=== PATIENT | male | born 1980 | race Caucasian/White ===

== ENCOUNTER 2025-05-05 08:57 | Emergency (ER) | payer OTHER, SELFPAY ==
[2025-05-05 09:04] VITALS: BP 159/91; PULSE 48; RESP 16; TEMP 36.2; O2SAT 100; BMI 26.5
--- NOTE | 2025-05-05 09:20 | CRLHL7_ITS ---
For Patients: As a result of the Century Cures Act, medical imaging exams and procedure reports are released immediately into your electronic medical record. You may view this report before your referring provider. If you have questions, please contact your health care provider. INDICATION: Periumbilical and right lower quadrant pain. COMPARISON: None. TECHNIQUE: CT of the abdomen and pelvis with intravenous contrast. Multiplanar axial, coronal, and sagittal reformats were reconstructed. Contrast: 91 mL Isovue 370. FINDINGS: Lung bases: Normal. Liver: There is a 4 millimeter hypodense liver lesion in segment II on series 2, image 31 and series 4, image 12. There is a somewhat more ill-defined hypodense liver lesion near the falciform ligament in the subcapsular aspect of segment III measures 1.5 cm. Ill-defined 1 centimeter hypodense liver lesion in segment IV on series 2, image 44. Gallbladder and bile ducts: Normal gallbladder. No bile duct dilation. Pancreas: Normal. Spleen: Normal. Adrenal glands: Normal. Kidneys: Normal parenchyma. Tiny right upper pole renal cyst. No solid renal mass. No calculi. No urinary tract dilation. Urinary bladder: Normal. Pelvis: No cyst or mass. Vessels: Normal. Bowel: No dilated or inflamed bowel. Normal appendix. Moderate stool burden. Lymph nodes: No adenopathy. Peritoneum: No ascites. Abdominal wall: No hernia. Bones: No fractures. No focal worrisome bone lesions. IMPRESSION: 1. Indeterminate liver lesions measuring up to 1.5 [address] abdomen without and with IV contrast liver mass protocol. 2. Otherwise unremarkable CT of the abdomen and pelvis. Please note that all CT scans at this facility use dose modulation, iterative reconstruction, and/or weight-based dosing when appropriate to reduce radiation dose to as low as reasonably achievable. Dictated by Jana Shane MD @ 05/05/2025 9:57:17 AM (Electronically Signed)
--- NOTE | 2025-05-05 09:21 | ED_ITS ---
HPI - Nausea/Vomiting/Diarrhea General Date Seen: 05/05/25 Chief complaint: Nausea/Vomiting Stated complaint: abdominal pain, chill and vomiting Time Seen by Provider: 05/05/25 09:14 Source: patient Mode of arrival: ambulatory Limitations: no limitations History of Present Illness HPI Narrative: Patient is a 44-year-old male presenting to the emergency department for nausea, vomiting, abdominal pain. He states around 01:30 woke up noticed he was having quite a bit of nausea and periumbilical abdominal pain. He has never had symptoms like this before. He tried taking some [id number] nausea medicine without any improvement. Has tried to eat a bowl of oatmeal at about 04:30 and has had about 64 oz of water/Gatorade/green tea since he woke up attempting to get himself to feel better. He has vomited 5 times since he woke up he states. States it appears yellowish green. Has not noticed any blood in his vomit. He continues to be nauseated this time. States all the pain seems to be around his periumbilical region. Denies ever having pain like this before. No previous abdominal surgeries. Had an episode diarrhea when he woke up at about 01:30 but no bowel movement since then. Has been having chills but no objective fevers. Denies chest pain, shortness of breath, lightheadedness, dizziness, weakness, numbness, headache, vision changes, dysuria. No other concerns noted. Of note the person was on azithromycin 2 weeks ago for strep throat. Is not having any sore throat at this time. Related Data Home Medications ?Medication ?Instructions ?Recorded ?Confirmed No Known Home Medications 05/05/2504/22 Allergies Allergy/AdvReac Type Severity Reaction Status Date / Time No Known Drug Allergies Allergy Verified 05/05/25 10:43 Review of Systems Status of ROS: Reports: 10 or more systems reviewed and unremarkable except as noted in History and below [facility] Medical History No known health problems ?Z78.9 - Other specified health status (ICD-10) Social History Narrative: , three kids Smoking Status: Former smoker How often do you have a drink containing alcohol: monthly or less AUDIT-C Alcohol total score: 1 Non-prescribed substance use: marijuana (any form) Non-prescribed substance use details: some days thc use Exam Narrative: Exam Narrative: Const: Well-nourished, Well-developed, in moderate distress Eyes: PERRL, no conjunctival injection, and symmetrical lids HENT: Atraumatic external nose and ears. Moist mucous membranes. Neck: Symmetric, trachea midline, No thyromegaly. CVS: RRR, No murmurs or gallops. Peripheral pulses 2+ and equal in all extremities RESP: Unlabored respiratory effort. Clear to auscultation bilaterally. GI: Periumbilical and right lower quadrant tenderness. No tenderness noted to rest of abdomen. Mild guarding but no rebound. Negative Rovsing sign. Nondistended MSK:Extremities w/o deformity, Normal Active ROM Skin: Warm, Dry. No rashes or lesions. Neuro: Normal Muscle tone, No focal neurological deficits. Psych: Awake, Alert, & Oriented x3. Appropriate mood and affect. Const: Vital Signs, click to edit/add: Vital Signs - 24 hr 05/05/25 09:04 05/05/25 09:52 05/05/25 10:00 Temperature 97.2 F L Pulse Rate 40 L 75 Pulse Rate [Pulse Oximeter] 48 L Respiratory Rate 16 18 Blood Pressure Blood Pressure [Ri ght Upper Arm] 159/91 H Pulse Oximetry 100 100 94 Oxygen Delivery Me thod Room Air 05/05/25 10:15 05/05/25 10:31 Temperature Pulse Rate 50 L Pulse Rate [Pulse Oximeter] Respiratory Rate 16 Blood Pressure 110/70 Blood Pressure [Ri ght Upper Arm] Pulse Oximetry 94 Oxygen Delivery Me thod Course Vital Signs Vital signs: Initial Vital Signs Temperature 97.2 F L 05/05/25 09:04 Temperature Source Temporal Artery Scan 05/05/25 09:04 Pulse Rate 48 L 05/05/25 09:04 Pulse Rhythm Regular 05/05/25 09:04 Respiratory Rate 16 05/05/25 09:04 Blood Pressure 159/91 H 05/05/25 09:04 Blood Pressure Mean 113 H 05/05/25 09:04 Blood Pressure Position Sitting 05/05/25 09:04 Pulse Oximetry 100 05/05/25 09:04 Oxygen Delivery Method Room Air 05/05/25 09:04 Vital Signs Temperature 97.2 F L 05/05/25 09:04 Pulse Rate 48 L 05/05/25 09:04 Respiratory Rate 16 05/05/25 09:04 Blood Pressure 159/91 H 05/05/25 09:04 Pulse Oximetry 100 05/05/25 09:04 Oxygen Delivery Method Room Air 05/05/25 09:04 Temperature 97.2 F L 05/05/25 09:04 Pulse Rate 50 L 05/05/25 10:15 Respiratory Rate 16 05/05/25 10:31 Blood Pressure 110/70 05/05/25 10:31 Pulse Oximetry 94 05/05/25 10:15 Oxygen Delivery Method Room Air 05/05/25 09:04 Medications Administered Medications: Discontinued Medications Generic Name Dose Route Start Last Admin Trade Name Freq PRN Reason Stop Dose Admin Lactated Ringer's 1,000 mls @ 1,000 mls/hr 05/05/25 09:20 05/05/25 10:33 Lactated Ringers 1000 Ml IV 05/05/25 10:19 Infused .Q1H ONE Infusion Morphine Sulfate 4 mg 05/05/25 09:20 05/05/25 09:48 Morphine 4 Mg/Ml Inj IVP 05/05/25 09:21 4 mg ONCE ONE Administration Ondansetron HCl 4 mg 05/05/25 09:20 05/05/25 09:48 Ondansetron 2 Mg/Ml Inj IVP 05/05/25 09:21 4 mg ONCE ONE Administration MDM - Nausea/Vomiting/Diarrhea MDM Narrative Medical decision making narrative: Patient is a 44-year-old male presenting for periumbilical and right lower quadrant pain. My main concern at this time is appendicitis. Will do a CT scan with IV contrast for better evaluation. Will also do a lie patient's like for signs of pancreatitis. Lower on the differential would include diverticulitis, gastroenteritis, gallbladder and liver disease. Will give him some Zofran for pain and morphine for nausea. Will also give him a L of fluids for hydration. CBC, CMP all ordered. Patient's lab work returns with a white count of 14. Rest his lab work shows no acute concerning abnormalities. CT scan returned showing indeterminate liver lesions measuring up to 1.5 cm. It is recommended he get an MRI abdomen without and with IV contrast for liver mass protocol. He is not having any right upper quadrant symptoms and his liver enzymes are within normal limits. This can be done outpatient. He is feeling much better after the medications. Symptoms are likely from a gastroenteritis. No signs of emergent abdominal issues. He will be discharged. He is agreeable to this plan. Lab Data Labs: Lab Results 05/05/25 Range/Units 09:30 WBC 14.06 H (4.50-11.00) K/uL RBC 5.25 (4.30-5.90) m/uL Hgb 14.7 (13.5-17.5) gm/dL Hct 44.1 (37.0-53.0) % MCV 84 (80-100) fL MCH 28 (26-34) pg MCHC 33 (32-36) gm/dL RDW Coeff of Fab 13.7 (11.5-15.5) % Plt Count 310 (140-440) K/uL Neut % (Auto) 83.2 H (42.0-72.0) % Lymph % (Auto) 12.3 L (20-44) % [place] % (Auto) 3.6 (0.0-11.0) % Eos % (Auto) 0.7 (0.0-7.0) % Baso % (Auto) 0.1 (0.0-3.0) % Neut # (Auto) 11.70 H (1.7-7.0) K/uL Lymph # (Auto) 1.70 (0.90-2.90) K/uL [place] # (Auto) 0.50 (0.00-0.90) K/UL Eos # (Auto) 0.10 (0.00-0.50) K/uL Baso # (Auto) 0.00 (0.00-0.30) K/uL Abs Immat Gran (auto) 0.00 (0.00-0.30) K/uL Imm/Tot Granulo (auto) 0.1 % Sodium 139 (135-149) mmol/L Potassium 4.3 (3.6-5.1) mmol/L Chloride 106 (96-114) mmol/L Carbon Dioxide 26 (20-32) mmol/L Anion Gap 7 (7-15) mEq/L BUN 16 (5-24) mg/dL Creatinine 1.1 (0.5-1.5) mg/dL Estimated Creat Clear 89.41 Estimated GFR 85 ml/min Glucose 138 H (60-115) mg/dL Calcium 9.3 (8.4-10.6) mg/dL Total Bilirubin 0.5 (0.1-1.5) mg/dL AST 31 (12-35) U/L ALT 19 (4-50) U/L Alkaline Phosphatase 85 (40-150) U/L Total Protein 6.9 (6.0-8.3) g/dL Albumin 4.3 (3.3-5.0) g/dL Lipase 100 (23-300) U/L Imaging Data CT scan abdomen pelvis: Attestation: I have reviewed the pertinent imaging results. Radiologist's impression: 1. Indeterminate liver lesions measuring up to 1.[address] abdomen without and with IV contrast liver mass protocol. 2. Otherwise unremarkable CT of the abdomen and pelvis. Please note that all CT scans at this facility use dose modulation, iterative reconstruction, and/or weight-based dosing when appropriate to reduce radiation dose to as low as reasonably achievable. Dictated by Jana Shane MD @ 05/05/2025 9:57:17 AM Discharge Plan Discharge Clinical Impression: Abdominal pain Qualifiers: Abdominal location: periumbilical Qualified Code(s): R10.33 - Periumbilical pain Patient Disposition: Home, Self-Care Condition: Improved Instructions: Abdominal Pain (ED) Additional Instructions: Your abdominal pain and nausea were likely be gastroenteritis related to either a viral infection or food poisoning. Symptoms should resolve on their own. Take the provided Zofran as needed for nausea. Zofran prescribed via instymeds Your CT scans there were some lesions seen on your liver. It is recommended you follow-up with your primary care provider to get an MRI abdomen without and with IV contrast liver mass protocol. Prescriptions: No Action No Known Home Medications Follow Up/Referrals: Neo Eastman MD [Primary Care Provider, Family Practice] Stand Alone Forms: [employer] Info Instructions
[2025-05-05 09:39] LABS: Hematocrit 44.1 % (37.0-53.0); Hemoglobin* 14.7 gm/dL (13.5-17.5); Immature Granulocytes Pct Auto 0.1 %; Mean Corpuscular HGB Conc 33 gm/dL (32-36); Mean Corpuscular Hemoglobin 28 pg (26-34); Mean Corpuscular Volume 84 fL (80-100); RDW Coefficient of Variation % 13.7 % (11.5-15.5); Red Blood Count 5.25 m/uL (4.30-5.90); White Blood Count* 14.06 K/uL (4.50-11.00)
[2025-05-05 09:42] LABS: Immature Granulocytes Abs Auto 0.00 K/uL (0.00-0.30); Lymphocytes Absolute Auto 1.70 K/uL (0.90-2.90); Slide Review Reflex No
[2025-05-05] MEDS: LACTATED RINGERS 1000 ML 1,000 ML IV (09:48)
[2025-05-05] MEDS: ONDANSETRON 2 MG/ML inj 4 MG IVP (09:48)
[2025-05-05] MEDS: MORPHINE 4 MG/ML INJ IVP (09:48)
[2025-05-05 09:52] VITALS: PULSE 40; O2SAT 100
[2025-05-05 10:00] VITALS: PULSE 75; RESP 18; O2SAT 94
[2025-05-05 10:15] VITALS: PULSE 50; O2SAT 94
[2025-05-05 10:30] LABS: Albumin* 4.3 g/dL (3.3-5.0); Chloride* 106 mmol/L (96-114); Potassium* 4.3 mmol/L (3.6-5.1); Sodium* 139 mmol/L (135-149)
[2025-05-05 10:31] VITALS: BP 110/70; RESP 16
[2025-05-05 10:32] LABS: Alanine Aminotransferase* 19 U/L (4-50); Anion Gap 7 mEq/L (7-15); Aspartate Amino Transferase* 31 U/L (12-35); Blood Urea Nitrogen* 16 mg/dL (5-24); Carbon Dioxide* 26 mmol/L (20-32); Creatinine* 1.1 mg/dL (0.5-1.5); Est. Creatinine Clearance* 89.41; Estimated Glomerular Filt Rate 85 ml/min
[2025-05-05 10:33] LABS: Alkaline Phosphatase* 85 U/L (40-150); Bilirubin Total* 0.5 mg/dL (0.1-1.5); Calcium* 9.3 mg/dL (8.4-10.6); Glucose* 138 mg/dL (60-115); Total Protein* 6.9 g/dL (6.0-8.3)
== END 2025-05-05 11:06 | disposition home or self-care (01) ==
PROVIDERS: Emergency Provider Student in an Organized Health Care Education/Training Program; PCP Family Medicine
DX: R10.33 Periumbilical pain (principal); R10.31 Right lower quadrant pain
CPT/HCPCS: 36415; 74177; 80053; 81001; 83690; 85025; 94761; 96374; 96375; 99284; 99285; J2270; J2405; J7120; Q9967